=== PATIENT | female | born 1985 | race Caucasian/White ===

== ENCOUNTER → 2024-03-13 13:42 | Outpatient (REF) | payer OTHER, SELFPAY | LOC: WDC 13:42 | PROVIDERS: ATTENDING PHYSICIAN Internal Medicine | DX: R92.8 Other abnormal and inconclusive findings on diagnostic imaging of breast (principal) | CPT/HCPCS: 77061; 77065 ==

== ENCOUNTER 2024-09-06 15:27 | Observation (INO) | payer OTHER, SELFPAY ==
[2024-09-06 10:29] VITALS: BP 146/93
[2024-09-06 12:11] LABS: D-Dimer 0.42 ug/mlFEU (0.00-0.50)
[2024-09-06 13:59] VITALS: BP 129/85
[2024-09-06 14:18] VITALS: BMI 30.3
[2024-09-06 14:24] LABS: Hematocrit 42.2 % (37.0-47.0); Hemoglobin 13.8 g/dL (12.0-16.0); Mean Corp Hgb Conc. 32.7 g/dL (33.0-37.0); Mean Corpuscular Hgb 29.3 pg (27.0-31.0); Mean Corpuscular Volume 89.6 fL (81.0-99.0); Mean Platelet Volume 9.9 fL (7.4-10.4); Platelet Count 340 10^3/uL (130-400); Red Blood Cell Count 4.71 10^6/uL (4.20-5.40); Red Cell Dist. Width 12.6 % (11.5-14.5); White Blood Cell Count 8.5 10^3/uL (4.8-10.8)
[2024-09-06 14:35] LABS: HCG, Serum Qualitative Screen Negative
[2024-09-06 14:41] LABS: Blood Urea Nitrogen 16 mg/dl (7-17); Calcium 10.1 mg/dl (8.4-10.2); Carbon Dioxide 28 mmol/L (22-30); Chloride 105 mmol/L (98-107); Estimated Creatinine Clearance > 125 ml/min; Glucose 82 mg/dl (70-99); Potassium 4.5 mmol/L (3.5-5.1); Sodium 141 mmol/L (135-145); eGFR > 60.00
--- NOTE | 2024-09-06 14:52 | ED.GENMED ---
History of Present Illness
General
Chief Complaint: Back Pain
Source: patient
Exam Limitations: none
Time Seen by Provider: 09/06/24 11:23
Nursing documentation reviewed up to this point in time: agreed with
History of Present Illness
History of Present Illness:
Patient presents to ED secondary to mid back pain shortly after waking up this morning. Denies chest pain. Denies shortness of breath. Denies fever or chills. However, for the past 2 months, patient has had dizziness, as well as blurred vision,
which has worsened recently. Patient has been evaluated by fabric and textile factory worker with normal workup. In addition, patient has been evaluated by her primary care physician who ordered outpatient MRI brain, with noted abnormal findings. Patient has been
recommended to obtain further MRI studies including neurology consultation as an outpatient, which has not been arranged. Denies previous history of similar symptoms. Denies loss of sensation or weakness. Patient has had intermittent headache.
Denies difficulty with swallowing or speech. Denies difficulty with ambulation.
Past History
Past History
ED Past Medical History: None
ED Past Surgical History: Tonsilectomy
Social History
Tobacco: Non-smoker
Alcohol: Occasional
Drug: None
Personal:
Living: with family
Review of Systems
Review of Systems
Allergies reviewed?: Yes
All Other Systems: ROS reviewed and negative except as documented in HPI and ROS
Constitutional: Reports no symptoms
Respiratory: Reports no symptoms
Cardiac: Reports no symptoms
ABD/GI: Reports no symptoms
Musculoskeletal: Reports back pain
Skin: Reports no symptoms
Neurological: Reports no symptoms
Phy Exam
Physical Exam
Physical Exam:
Physical Exam
General: no apparent distress, not acutely ill. afebrile
Head: nc/at. eomi
Neck: supple. normal range of motion.
Heart: s1/s2 regular rate and rhythm, no murmur. equal radial pulses.
Lungs: no acute respiratory distress. clear bilaterally
Abdomen: normal bowel sounds. not tender.
Neuro: alert and oriented. no focal sensory/motor deficit. normal speech. normal gait.
Skin: no rash
Psychiatric: well kept. interactive and cooperative
Extremities: no edema. no calf tenderness.
Course
Orders/Labs/Results
Orders:
Orders
09/06/24 11:37
CR Chest - 2 Views Urgent
Comment:
Reason For Exam: mid back pain
09/06/24 11:48
D-Dimer Urgent
09/06/24 14:05
Test Result ONCE
09/06/24 14:16
Basic Metabolic Panel Urgent
Complete Blood Count/No Diff Urgent
HCG, Serum Qualitative Screen Urgent
09/06/24 Dinner
Regular
At Your Request: Full Participation
Does patient need a safe tray?: No
09/06/24 15:18
Admit/Transfer Patient As Directed
Co-Sign Provider:
Level of Care: Observation services
Assign to:: Medical/Surgical
Physician / Group: tania
Diagnosis: blurry vision
Code Status As Directed
Resuscitation Status: Full Code
PRN Pain Medication Management As Directed
May give lesser potent ordered pain med per pt: Yes
preference::
Protocol:: Medication orders for pain may be administered in a
manner that supports deferring to patient preference
when the pt is:
- Requesting an ordered lesser potent pain medication.
Least to most potent pain medications are defined
as: acetaminophen < NSAID < tramadol < opioids
(morphine, oxycodone, hydromorphone).
- Requesting a lesser dose of the same medication IF
ORDERED.
- Requesting a less intrusive route of administration
if both routes are prescribed by the provider (PO <
IV).
09/06/24 16:34
Activity As Directed
Activity Level: As Tolerated
Pneumatic Compression Sleeves As Directed
Type: Knee high
Vital Signs As Directed
Frequency: Per unit guidelines
DX Deep Vein Thrombosis Video Routine
09/06/24 22:00
Lactobac/Bifidobac [Visbiome] 1 cap PO HS
09/07/24 06:19
Complete Blood Count/With Diff IN AM
Comprehensive Metabolic Panel IN AM
09/07/24 08:00
Cholecalciferol (Vitamin D3) [VITAMIN D3 (cholecalciferol)] 125 mcg PO DAILY
Magnesium Oxide 500 mg PO DAILY
Multivitamin [Theragran] 1 tablet PO DAILY
bergamot extract [[place] Bergamot] 350 mg PO DAILY
gmtbp-oto-N-nkxsj-cnep-phn [Joint Support Complex] 1 cap PO DAILY
Abnormal Lab Results
09/06/24
14:16
MCHC 32.7 L g/dL
(33.0-37.0)
09/06/24 14:16
09/06/24 14:16
Vital Signs
Initial and Last Documented VS:
Initial Vital Signs
Temp Pulse Resp BP Pulse Ox
98.8 F 85 16 146/93 100
09/06/24 10:29 09/06/24 10:29 09/06/24 10:29 09/06/24 10:29 09/06/24 10:29
Last Documented Vital Signs
Temp Pulse Resp BP Pulse Ox
98.8 F 68 16 106/60 98
09/07/24 07:42 09/07/24 07:42 09/07/24 07:42 09/07/24 07:42 09/07/24 07:42
MDM/Problems Addressed
MDM/Problems Addressed:
Outpatient MRI brain report reviewed and discussed with on-call neurology, Dr. Llanos. In light of patient's persistent symptoms, recommends admission to the hospital for further evaluation and treatment.
*Critical Care Note
Total Time (30-74mins, 75-104mins- exclusive of procedures): Not Applicable
ED Attending Note
-
Portions of this chart may have been created with voice recognition software.� Occasional wrong word or��sound alike� substitutions may have occurred due to the inherent limitations of voice recognition software.
Discharge Plan
Departure
Patient Disposition: Admit
Date of Disposition: 09/06/24
Time of Disposition: 15:01
Admit to: Med/Surg
Presentation/result/management discussed w/ accepting MD/DO: Hospitalist
Discharge Problem:
Blurred vision, Abnormal brain MRI
Interventions
Interventions:
*Risk Screen - Suicide Last Done: 09/06/24 10:33
*Neglect/Abuse Screening Last Done: 09/06/24 10:33
*Nursing Disposition Last Done: 09/06/24 16:41
ED-Musculoskeletal Assessment Last Done: 09/06/24 12:31
Discharge Date and Time
Discharge Date/Time: 09/06/24 16:41
--- NOTE | 2024-09-06 15:20 | HPS.HSE ---
Family Physician
-
Family Physician: Beata Cheek
Chief Complaint
-
blurry vision
History of Present Illness
39-year-old female past medical history of migraines, gastric ulcer, migraines, small intestinal bacterial overgrowth, scoliosis, GERD, anxiety, presenting with blurry vision.
Patient has had periodic episodes of vertigo in the past and she has been having persistent vertigo for the past few weeks. Saw her primary care physician who noticed nystagmus on examination and started her on steroids 2 weeks ago when she
completed 10-day course with complete improvement in the vertigo. She also had MRI of the brain. Since then she has been having intermittent blurry vision worse in the right eye. She has some sensitivity to light and sounds.
She saw floorwalker within past few days who noted no structural abnormalities.
Few days ago she developed central back pain without radiation. Pain is worse with movement. She denies any numbness or tingling. Denies speaking or swallowing difficulties. She occasionally does have a headache. Denies nausea or vomiting.
Denies focal weakness.
She does have a history of migraines most recent episode was a few years ago when she had right eye vision loss at that time. Symptoms at this time do not resemble that.
She drinks alcohol socially. Denies smoking. Denies drugs.
Her great-grandmother had a stroke. No other neurological problems in the family.
Medical History
Past Medical History
Past Medical History: Reports Other (migraines, gastric ulcer, migraines, small intestinal bacterial overgrowth, scoliosis, GERD, anxiety)
Past Surgical History: Reports Other (Laparoscopic left ovarian cystectomy, perineal repair, wisdom teeth, pelvic reconstruction,)
Social History
Tobacco: Non-smoker
Alcohol: Occasional
Drug: None
Family History
Family History: Not pertinent
Allergies / Home Medications
Allergies reflects when Allergies were last updated in [employer].
Home Medications with original date entered in [employer]
Allergy/Medication List:
Allergies
Allergy/AdvReac Type Severity Reaction Status Date / Time
No Known Allergies Allergy Verified 09/03/24 15:26
Home Medications
Lactobac no.2-Bifidobac no.1-S. thermo 112.5 billion cell capsule (Visbiome) 1 cap PO HS 06/19/22
bergamot extract 500 mg capsule ([place] Bergamot) 350 mg PO DAILY 09/03/24
cholecalciferol (vitamin D3) 125 mcg (5,000 unit) tablet (Vitamin D3) 125 mcg PO DAILY 09/03/24
glucosamine 500 mg-msm 100 mg-vit C 20 el-dknld-tjvp-primrose capsule (Joint Support Complex) 1 cap PO DAILY 09/03/24
magnesium 250 mg tablet 500 mg PO DAILY 09/03/24
multivitamin 1 tab PO DAILY 09/03/24
Review of Systems
-
History Source: Patient
A 12 point ROS was completed and negative except as noted: Yes
Constitutional: Reports No Symptoms
EENT: Reports No Symptoms
Respiratory: Reports No Symptoms
Cardiac: Reports No Symptoms
Abdomen/GI: Reports No Symptoms
: Reports No Symptoms
Musculoskeletal: Reports No Symptoms
Skin: Reports No Symptoms
Neurological: Reports No Symptoms
Endocrine: Reports No Symptoms
Hematologic/Lymphatic: Reports No Symptoms
Psych: Reports No Symptoms
Physical Exam
Vital Signs
Vital Signs
Temp Pulse Resp BP Pulse Ox
98.8 F 70 16 129/85 100
09/06/24 10:29 09/06/24 13:59 09/06/24 13:59 09/06/24 13:59 09/06/24 13:59
Physical Exam
General: Well Developed, Well Nourished and No Apparent Distress
HEENT: NormoCephalic, Moist mucous membranes and Atraumatic
Respiratory: Clear
Cardiac: S1/S2 and Regular Rhythm; No Murmur or Rub
GI: Soft, Non Tender, Non Distended and Normal Bowel Sounds; No Organomegaly
Rectal: Deferred by Provider
Musculoskeletal: No Clubbing, No Cyanosis and No Edema
Skin: No Rash
Neuro: Nonfocal/grossly intact
Laboratory Results
-
09/06/24 14:16
09/06/24 14:16
Data Reviewed
-
Lab Data: Labs Reviewed by me
Old Records: Reviewed
Impression/Plan
-
IMPRESSION:
PLAN:
# Blurry vision, recent vertigo unclear etiology
-Outpatient MRI shows bilateral symmetrical middle cerebral peduncle high signal intensities on FLAIR in the posterior parietal white matter needs further evaluation with 3D FLAIR imaging, which could also be normal variant
-Considering possible multiple sclerosis versus pseudotumor cerebri
-Neurology consulted
# Acute mid back pain
-No tenderness to palpation
-Continue to monitor
History of migraines
History of gastric ulcer
Small intestinal bacterial overgrowth
History of scoliosis
GERD
Anxiety
Full code
DVT prophylaxis�SCDs
Regular diet
[2024-09-06 16:53] VITALS: BP 140/86
--- NOTE | 2024-09-06 17:11 | PTCARENOTE ---
Received Pt from ED in wheelchair. Walked from wheelchair to bed. AAOx3 able to make needs known. Oriented to room and use of call saleh. Denies pain/discomfort. Family at bedside. Call saleh within reach.
[2024-09-06] MEDS: VISBIOME 1 CAP PO (21:26)
[2024-09-06 23:06] VITALS: BP 105/57
[2024-09-07 06:29] LABS: % Basophils 0.4 % (0-2); % Eosinophils 3.3 % (0-6); % Immature Granulocytes 0.4 % (0-0.5); % Lymphocytes 36.8 % (20.5-51.1); % Monocytes 8.2 % (1.7-9.3); % Neutrophils 50.9 % (42.2-75.2); Absolute Eosinophils 0.2 10^3/uL (0-0.7); Absolute Lymphocytes 2.7 10^3/uL (1.2-3.4); Absolute Monocytes 0.6 10^3/uL (0.1-0.6); Absolute Neutrophils 3.7 10^3/uL (1.4-6.5); Hemoglobin 12.5 g/dL (12.0-16.0); Mean Corp Hgb Conc. 32.9 g/dL (33.0-37.0); Mean Corpuscular Hgb 29.6 pg (27.0-31.0); Mean Platelet Volume 9.8 fL (7.4-10.4); Nucleated Red Blood Cells % 0 %; Platelet Count 291 10^3/uL (130-400); Red Blood Cell Count 4.22 10^6/uL (4.20-5.40); Red Cell Dist. Width 12.7 % (11.5-14.5); White Blood Cell Count 7.3 10^3/uL (4.8-10.8)
[2024-09-07 07:42] VITALS: BP 106/60
[2024-09-07 07:59] LABS: ALT (SGPT) 18 U/L (0-35); AST (SGOT) 23 U/L (14-36); Albumin 4.3 g/dl (3.5-5.0); Alkaline Phosphatase 37 U/L (38-126); Blood Urea Nitrogen 17 mg/dl (7-17); Calcium 9.6 mg/dl (8.4-10.2); Carbon Dioxide 26 mmol/L (22-30); Chloride 106 mmol/L (98-107); Estimated Creatinine Clearance 100 ml/min; Glucose 97 mg/dl (70-99); Potassium 4.8 mmol/L (3.5-5.1); Sodium 141 mmol/L (135-145); Total Bilirubin 0.4 mg/dl (0.2-1.3); Total Protein 6.8 g/dl (6.3-8.2); eGFR > 60.00
[2024-09-07] MEDS: MAGNESIUM OXIDE 500 MG PO (09:07)
[2024-09-07] MEDS: VITAMIN D3 (cholecalciferol) 125 MCG PO (09:07)
[2024-09-07] MEDS: THERAGRAN 1 TABLET PO (09:07)
--- NOTE | 2024-09-07 11:04 | W.PN.HOSP.TC ---
Today's Communication/Plan
-
see plan
Assessment / Plan
Assessment / Plan
Ms. Rosita Lord is a 39 yo woman with hx migraines, gastric ulcer, small intestinal bacterial overgrowth, scoliosis, GERD, anxiety, presenting with blurry vision. She was recently treated for nystagmus and vertigo with a course of
steroids, which has now improved. She had a Brain MRI as outpatient. She presents with intermittent blurriness of right eye.
She saw community outreach advocate within past few days who noted no structural abnormalities.
# Blurry vision, recent vertigo unclear etiology
-Outpatient MRI shows bilateral symmetrical middle cerebral peduncle high signal intensities on FLAIR in the posterior parietal white matter needs further evaluation with 3D FLAIR imaging, which could also be normal variant
-Considering possible multiple sclerosis versus pseudotumor cerebri
-Neurology consulted - discussed with Dr. Llanos who will see soon to order more testing
# Acute mid back pain
-No tenderness to palpation
-may require further imaging - discuss with Neurology
History of migraines
History of gastric ulcer
Small intestinal bacterial overgrowth
History of scoliosis
GERD
Anxiety
Full code
DVT prophylaxis�SCDs
Regular diet
Anticipated Discharge: 24 - 48 hours
Subjective/Interval History
-
Date of Service: September 07, 2024
she has blurry vision right eye worse with movement and central back pain
Objective Data
-
Labs:
Laboratory Results
09/07/24
06:19
WBC 7.3
Hgb 12.5
Hct 38.0
Plt Count 291
Sodium 141
Potassium 4.8
Chloride 106
Carbon Dioxide 26
BUN 17
Creatinine 0.8
Glucose 97
Calcium 9.6
Total Bilirubin 0.4
AST 23
ALT 18
Alkaline Phosphatase 37 L
Vital Signs:
Vital Signs
Temp Pulse Resp BP Pulse Ox
98.8 F 68 16 106/60 98
09/07/24 07:42 09/07/24 07:42 09/07/24 07:42 09/07/24 07:42 09/07/24 07:42
I&O
09/06/24 09/07/24 09/08/24
06:59 06:59 06:59
Intake Total 1600 / 1600
Balance 1600 / 1600
Review of Systems
-
History Source: Patient
All other systems: Reviewed and negative
Physical Exam
-
General: Well Developed and No Apparent Distress
HEENT: Normocephalic, Atraumatic and Moist Mucous Membranes
Respiratory: Clear to Auscultation
Cardiac: Regular Rhythm and S1/S2; Negative Murmur, Rub or Gallop
GI: Soft, Nontender, Nondistended and Normal Bowel Sounds; Negative Organomegaly
Rectal: Deferred by Provider
Musculoskeletal: No Clubbing, No Cyanosis and No Edema
Skin: Negative Rash
Neuro: Nonfocal/Grossly Intact
Data Reviewed
-
Diagnostic Radiology: Report Reviewed by me
Labs: Labs Reviewed by me
--- NOTE | 2024-09-07 12:31 | CON.NEURO ---
Consultation
Order
Date of Consultation: 09/07/24
Requesting Provider: Maria Elena Reynolds MD
Reason for Consult: Visual symptoms.
Neurology Consultation Note.
HPI: This is a 39-year-old RH woman who presented to [facility] on 09/06[facility]24 with multiple symptoms.
According to the patient he developed nonpositional continuous vertigo lasting for several days in 2016. At that time she reportedly had unremarkable brain MRI(08/22/2017) and was determined that her symptoms were probably secondary to
labyrinthitis.
Since that time patient had 3 more additional spells of vertigo. Her last episode of vertigo lasting about a week and a half occurred in July of this year with symptom resolution after 2 weeks of oral steroids and completed 10 days of PT.
Ms. Morley reports reports that her vision has become blurry several days ago, with her right eye being worse than her left eye. She was reportedly seen by an ophthalmology and had unremarkable funduscopy.
Ms. Morley developed unprovoked back pain three days ago, describing it as a 'bizarre pain' in the center of her back, feeling like a 'bruise or inflammation'. The pain is tolerable during the day but worsens at night. She denies any back trauma,
heavy lifting, radicular symptoms, fever, leg weakness, change in sphincter function. She has been taking Tylenol and Motrin for headaches 2-3 times a week.
Her symptoms reportedly have not improved following 10-day course of PT.
patient had transient right visual loss 4 years ago that lasted for less than 1 day in settings of headaches.
ER VS: 146/93, 85, afebrile
EKG:NSR, QTc Int : 414 ms
PDMP: No recently prescribed medications.
Labs: Unremarkable.
Brain MRI with and without charbel (08/27/2024) bilateral symmetrical middle cerebellar peduncle high signal intensity on FLAIR and in the posterior parietal white matter.
PMH: migraine with aura, PUD, scoliosis, GERD, CHARBEL, vitamin D deficiency.
PSH: laparoscopic left ovarian cystectomy, pelvic floor reconstruction, wisdom tooth extraction.
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
FH: Grandmother�stroke.
All:NKDA
ROS:Constitutional: Negative. Negative for chills, fever and unexpected weight change.
HENT: Negative for ear pain, hearing loss, tinnitus and trouble swallowing.
Eyes: Positive for blurred vision
Respiratory: Negative for cough, choking and shortness of breath.
Cardiovascular: Negative for chest pain, palpitations and leg swelling.
Gastrointestinal: Positive for chronic constipation.
Endocrine: Negative. Negative for cold intolerance.
Genitourinary: Negative for dysuria, flank pain and urgency.
Musculoskeletal: Negative for back pain, gait problem, neck pain and neck stiffness.
Skin: Negative for rash.
Allergic/Immunologic: Negative. Negative for immunocompromised state.
Neurological: Positive for intermittent vertigo,
Psychiatric/Behavioral: Positive for anxiety
General: Well developed. In no acute distress.
Cardio: Regular rate and rhythm without murmur. Extremities are without cyanosis or edema.
Neuro:
Mental Status: Alert, oriented to person, place, and date. Normal attention and recall. Good fund of knowledge. Follows complex requests across the midline. Comprehension, naming, and repetition intact. Anxious
Cranial Nerves: . Pupils are equally round and reactive to light. EOMs full. Visual gonzales full to confrontation. No ptosis. No nystagmus. V1-V3 intact to light touch and pinprick bilaterally, symmetric. Face symmetric. Normal hearing AU.
The palate elevated well. SCMs and traps 5/5. Tongue midline. No dysarthria.
Motor: Normal bulk and tone. No pronator or arm drift. Strength 5/5 throughout. No clonus.
Reflexes: 2+ throughout the upper extremities and knees. 2/2 in AJs. Plantar responses flexor bilaterally.
Sensory: Normal vibration at the toes
Coordination: No dysmetria or tremor.
Gait: deferred
Assessment and Plan:
I. Abnormal brain MRI. Neuroexam is unremarkable.
II. Back pain
III. Vertigo
IV. CHARBEL
-Telemetry monitoring
-Meclizine 25 mg every 8 hours as needed
-Tylenol 500 every 8 hours as needed
-Please check ESR, CRP, LESLIE, Lyme, DAYNA, hepatitis panel, vitamin B12, folate
-Brain MRI with and without gadolinium
-Please obtain a copy of ophthalmology consult
-ENT consultation
-Outpatient VNG
-Thoracic XR
-PT
I personally reviewed all radiology and labs along with past medical records pertinent to current medical problems. Total time spent in patient care is 60 minutes.
Thank you for allowing us to participate in the care of this patient. We will continue to follow. Please do not hesitate to contact us with any questions or concerns.
Subjective/Objective
Subjective Data
Date of Service: September 07, 2024
Objective Data
Vital Signs
Temp Pulse Resp BP Pulse Ox
37.1 C 68 16 106/60 98
09/07/24 07:42 09/07/24 07:42 09/07/24 07:42 09/07/24 07:42 09/07/24 07:42
Lab Results
09/07/24 06:19
09/07/24 06:19
Sodium 141 mmol/L (135-145) 09/07/24 06:19
Potassium 4.8 mmol/L (3.5-5.1) 09/07/24 06:19
BUN 17 mg/dl (7-17) 09/07/24 06:19
Glucose 97 mg/dl (70-99) 09/07/24 06:19
Calcium 9.6 mg/dl (8.4-10.2) 09/07/24 06:19
Patient Allergies
No Known Allergies Allergy (Verified 09/03/24 15:26)
Medications
-
Active Medications
Generic Name Dose Route Start Last Admin
Trade Name Tonny PRN Reason Stop Dose Admin
Cholecalciferol 125 mcg 09/07/24 08:00 09/07/24 09:07
Cholecalciferol (Vitamin D3) 125 Mcg Tablet (5,000 Units) PO 10/05/24 07:59 125 mcg
DAILY SUMMER Administration
Lactobacillus/Bifidobacterium 1 cap 09/06/24 22:00 09/06/24 21:26
Lactobac/Bifidobac (Visbiome) PO 10/04/24 21:59 1 cap
HS SUMMER Administration
Magnesium Oxide 500 mg 09/07/24 08:00 09/07/24 09:07
Magnesium Oxide 500 Mg Tablet PO 10/05/24 07:59 500 mg
DAILY SUMMER Administration
Multivitamins Therapeutic 1 tablet 09/07/24 08:00 09/07/24 09:07
Multivitamin Tablet PO 10/05/24 07:59 1 tablet
DAILY SUMMER Administration
Home Medications
�Medication �Instructions �Recorded
Lactobac no.2-Bifidobac no.1-S. 1 cap PO HS probiotic 06/19/22
thermo 112.5 billion cell capsule
(Visbiome)
bergamot extract 500 mg capsule 350 mg PO DAILY Supplement 09/03/24
([place] Bergamot)
cholecalciferol (vitamin D3) 125 125 mcg PO DAILY Supplement 09/03/24
mcg (5,000 unit) tablet (Vitamin
D3)
glucosamine 500 mg-msm 100 mg-vit 1 cap PO DAILY Supplement 09/03/24
C 20 kf-cwdrd-ievp-primrose
capsule (Joint Support Complex)
magnesium 250 mg tablet 500 mg PO DAILY Supplement 09/03/24
multivitamin 1 tab PO DAILY Supplement 09/03/24
Vital Signs and Labs
-
Vital Signs and Labs:
Vital Signs
Temp Pulse Resp BP Pulse Ox
37.1 C 68 16 106/60 98
09/07/24 07:42 09/07/24 07:42 09/07/24 07:42 09/07/24 07:42 09/07/24 07:42
Lab Results
09/07/24 06:19
09/07/24 06:19
Sodium 141 mmol/L (135-145) 09/07/24 06:19
Potassium 4.8 mmol/L (3.5-5.1) 09/07/24 06:19
BUN 17 mg/dl (7-17) 09/07/24 06:19
Glucose 97 mg/dl (70-99) 09/07/24 06:19
Calcium 9.6 mg/dl (8.4-10.2) 09/07/24 06:19
Medications
-
Medications:
Generic Name Dose Route Start Last Admin
Trade Name Freq PRN Reason Stop Dose Admin
Cholecalciferol 125 mcg 09/07/24 08:00 09/07/24 09:07
Cholecalciferol (Vitamin D3) 125 Mcg Tablet (5,000 Units) PO 10/05/24 07:59 125 mcg
DAILY SUMMER Administration
Lactobacillus/Bifidobacterium 1 cap 09/06/24 22:00 09/06/24 21:26
Lactobac/Bifidobac (Visbiome) PO 10/04/24 21:59 1 cap
HS SUMMER Administration
Magnesium Oxide 500 mg 09/07/24 08:00 09/07/24 09:07
Magnesium Oxide 500 Mg Tablet PO 10/05/24 07:59 500 mg
DAILY SUMMER Administration
Multivitamins Therapeutic 1 tablet 09/07/24 08:00 09/07/24 09:07
Multivitamin Tablet PO 10/05/24 07:59 1 tablet
DAILY SUMMER Administration
Home Medications
-
Home Medications
Lactobac no.2-Bifidobac no.1-S. thermo 112.5 billion cell capsule (Visbiome) 1 cap PO HS probiotic 06/19/22
bergamot extract 500 mg capsule ([place] Bergamot) 350 mg PO DAILY Supplement 09/03/24
cholecalciferol (vitamin D3) 125 mcg (5,000 unit) tablet (Vitamin D3) 125 mcg PO DAILY Supplement 09/03/24
glucosamine 500 mg-msm 100 mg-vit C 20 gg-jklgg-egqq-primrose capsule (Joint Support Complex) 1 cap PO DAILY Supplement 09/03/24
magnesium 250 mg tablet 500 mg PO DAILY Supplement 09/03/24
multivitamin 1 tab PO DAILY Supplement 09/03/24
[2024-09-07 16:00] VITALS: BP 111/62
--- NOTE | 2024-09-07 16:10 | CM ---
Met with patient to obtain information for assessment. Patient stated that she lives with her spouse and 2 kids in a two story home with 2 steps to enter. She is independent with all of her ADLs, personal care, dressing and bathing. 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 She is able to drive and can transport herself to all of her appointment and do all of her own shopping. She denied any DME.
She has never been in a VN.
She has not been to a SNF.
She has a prescription plan and she uses, [facility] in [place].
Her PCP is, Beata Lynn.
RODRIGES letter reviewed and signed.
Patient stated that she will be able to return home no needs.
Plan: Case management will continue to follow and assist with discharge planning. Home when stable.
--- NOTE | 2024-09-07 17:46 | W.DS.TRANS ---
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
-
Discharge Instructions:
Discharge Diagnosis/Procedures blurry vision undergoing work-up
Diet Regular
Activity As tolerated
Driving Restrictions As prior to admission
Bathing Restrictions None
Instructions:
Stand-Alone Forms:
Changes to Home Medications: No
Discharge Medications:
DC Medications w/original date entered in [employer]
Lactobac no.2-Bifidobac no.1-S. thermo 112.5 billion cell capsule (Visbiome) 1 cap PO HS probiotic 06/19/22
bergamot extract 500 mg capsule ([place] Bergamot) 350 mg PO DAILY Supplement 09/03/24
cholecalciferol (vitamin D3) 125 mcg (5,000 unit) tablet (Vitamin D3) 125 mcg PO DAILY Supplement 09/03/24
glucosamine 500 mg-msm 100 mg-vit C 20 tr-rnkte-eeyq-primrose capsule (Joint Support Complex) 1 cap PO DAILY Supplement 09/03/24
magnesium 250 mg tablet 500 mg PO DAILY Supplement 09/03/24
multivitamin 1 tab PO DAILY Supplement 09/03/24
Home Medication Changes
Pending Results: Yes
Additional Pending Results:
LESLIE, Lyme, DAYNA, B12, folate, TSH
[2024-09-07 19:40] LABS: C-Reactive Protein < 5.00 mg/L (0.0-10.00)
[2024-09-07 20:13] LABS: TSH Reflex To Free T4 1.15 uIU/ml (0.47-4.68)
[2024-09-07 20:49] LABS: Folate > 20.0 ng/ml (2.76-20); Vitamin B12 977 pg/ml (239-931)
--- NOTE | 2024-09-08 07:23 | W.DCSUMMARY ---
Discharge Summary
Discharge Data
Date of Admission: 09/06/24
Date of Discharge: 09/07/24
-
Pending Results: Yes
Additional Pending Results:
Lyme, LESLIE, DAYNA
Hospital Course
Discharging Physician : Dr. Maria Elena Reynolds
Disposition : Home
Primary care physician : Dr. Beata Cheek
Principal Discharge diagnosis : Work up of blurry vision
Hospital Course :
Ms. Rosita Lord is a 39 yo woman with hx migraines, gastric ulcer, small intestinal bacterial overgrowth, scoliosis, GERD, anxiety, presenting with blurry vision. She was recently treated for nystagmus and vertigo with a course of
steroids, which has now improved. She had a Brain MRI as outpatient that was read as 'bilateral symmetrical middle cerebral peduncle high signal intensities on FLAIR in the posterior parietal white matter needs further evaluation with 3D FLAIR
imaging, which could also be normal variant'. She presents with intermittent blurriness of right eye and point tenderness mid-spine without radiation.
Per Neurology recommendations, patient was admitted for further testing and she received an MRI Brain with and without contrast with 3D FLAIR and diffusion tensor imaging. Per Dr. Llanos's (Neurology) review the MRI reads as nonspecific
subcortical white matter disease, not worrisome for MS. Post MRI patient was eager for discharge. She is discharged home and is told to follow up pending labs with outpatient provider.
Time spent on discharge was 31 minutes.
Important imaging findings :
BRAIN MRI
IMPRESSION:
1. Small number of small subcortical white matter lesions in both frontal lobes. No MRI evidence for white matter disease in the parietal lobes, cerebellar peduncles, or callososeptal interface. Diagnostic possibilities are (1) migraine headaches
(most likely) or (2) less likely demyelinating disease (not a typical white matter disease pattern suggestive of multiple sclerosis), vasculitis, or Lyme disease.
2. 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
3. Mild paranasal sinus mucosal disease.
THORACIC SPINE X-RAY
IMPRESSION: Mild midthoracic spine dextroscoliosis
Minimal lower thoracic spine degenerative disease.
Procedure findings :
Discharge Plan
-
Patient Disposition: Home (Routine Discharge)
Discharge Diagnosis/Procedures: blurry vision undergoing work-up
Diet: Regular
Activity: As tolerated
Driving Restrictions: As prior to admission
Bathing Restrictions: None
Activity Restrictions/Additional Instructions:
Your MRI was reviewed by our Neurologist and is not concerning for MS. You have several lab studies pending that will be followed up by your outpatient provider.
Referrals:
Beata Cheek, DO [Family Provider] - in less than 1 week
Prescriptions:
Continued
Visbiome 112.5 billion cell Capsule
1 cap PO HS
multivitamin Tablet
1 tab PO DAILY
magnesium 250 mg Tablet
500 mg PO DAILY
cholecalciferol (vitamin D3) [Vitamin D3] 125 mcg (5,000 unit) Tablet
125 mcg PO DAILY
Joint Support Complex 419-768-05-0.5 mg Capsule
1 cap PO DAILY
Calpella Bergamot 500 mg Capsule
350 mg PO DAILY
Discharge Orders:
Discharge Patient (As Directed); Ordered 09/07/24
Ordered By: Maria Elena Reynolds
Discharge Date and Time
Discharge Date/Time: 09/07/24 18:47
Print Language: MALAWIAN
[2024-09-10 05:57] LABS: Angiotensin-1-converting Enzym 18 U/L (16-85)
== END 2024-09-07 18:47 | disposition home or self-care (01) ==
LOC: 3 WEST ACU 15:27
PROVIDERS: ADMITTING PHYSICIAN Hospitalist; ATTENDING PHYSICIAN Student in an Organized Health Care Education/Training Program; CONSULT PHYSICIAN Psychiatry & Neurology Neurology; EMERGENCY PHYSICIAN Emergency Medicine; FAMILY PHYSICIAN Internal Medicine
DX: H53.8 Other visual disturbances (principal); R42 Dizziness and giddiness; R93.0 Abnormal findings on diagnostic imaging of skull and head, not elsewhere classified; G43.109 Migraine with aura, not intractable, without status migrainosus; K21.9 Gastro-esophageal reflux disease without esophagitis; F41.1 Generalized anxiety disorder; M41.86 Other forms of scoliosis, lumbar region; M51.34 Other intervertebral disc degeneration, thoracic region; M25.78 Osteophyte, vertebrae; R90.82 White matter disease, unspecified; G93.0 Cerebral cysts; M41.84 Other forms of scoliosis, thoracic region; K63.8219 Small intestinal bacterial overgrowth, unspecified; E55.9 Vitamin D deficiency, unspecified; Z87.11 Personal history of peptic ulcer disease; Z82.3 Family history of stroke
CPT/HCPCS: 70553; 71046; 72072; 80048; 80053; 82164; 82607; 82746; 84443; 84703; 85025; 85027; 85379; 86038; 86140; 86618; 99285; A9575; G0378

== ENCOUNTER 2024-09-11 06:23 | Day surgery (SDC) | payer OTHER, SELFPAY | END 2024-09-11 10:41 | disposition home or self-care (01) | LOC: GI 06:23 | PROVIDERS: ATTENDING PHYSICIAN Internal Medicine Gastroenterology | DX: D12.2 Benign neoplasm of ascending colon (principal); K63.89 Other specified diseases of intestine; K64.8 Other hemorrhoids; Q43.8 Other specified congenital malformations of intestine; R19.4 Change in bowel habit | CPT/HCPCS: 45380; 88305 ==

== ENCOUNTER → 2024-10-15 15:19 | Outpatient (REF) | payer BC, SELFPAY | LOC: WDC 15:19 | PROVIDERS: ATTENDING PHYSICIAN Internal Medicine | DX: Z12.31 Encounter for screening mammogram for malignant neoplasm of breast (principal) | CPT/HCPCS: 77063; 77067 ==

== ENCOUNTER → 2024-11-06 09:58 | Outpatient (REF) | payer BC, SELFPAY | LOC: HWRAD 09:58 | PROVIDERS: FAMILY PHYSICIAN Internal Medicine | DX: J32.0 Chronic maxillary sinusitis (principal) | CPT/HCPCS: 70486 ==

== ENCOUNTER → 2025-05-19 10:04 | Outpatient (REF) | payer BC, SELFPAY | LOC: WDC 10:04 | PROVIDERS: ATTENDING PHYSICIAN Internal Medicine | DX: N64.4 Mastodynia (principal) | CPT/HCPCS: 76642; 77061; 77065 ==

== ENCOUNTER 2025-09-22 10:27 | Outpatient (RCR) | payer BC, SELFPAY | END 2025-09-22 23:59 | disposition home or self-care (01) | LOC: RPT 10:27 | PROVIDERS: ATTENDING PHYSICIAN Physician Assistant Surgical; FAMILY PHYSICIAN Internal Medicine | DX: M54.2 Cervicalgia (principal); Z73.6 Limitation of activities due to disability; M25.511 Pain in right shoulder; R20.0 Anesthesia of skin; R20.2 Paresthesia of skin | CPT/HCPCS: 97010; 97110; 97112; 97140; 97162 ==